=== PATIENT | female | born 1970 | race Caucasian/White ===

== ENCOUNTER 2018-08-20 21:02 | Emergency (ER) | payer MEDICAID ==
[~2018-08-20] VITALS: Ht 170.2 cm; Wt 99.7 kg
[2018-08-20 21:08] VITALS: BP 146/77
[2018-08-20] MEDS ORDERED: proCHLORperazine 10 MG/2 ml inj IV ONE (22:00)
[2018-08-20] MEDS ORDERED: normal saline 1000ML IV soln IVB ONE (22:00)
[2018-08-20] MEDS ORDERED: diphenhydrAMINE 50 mg/ml inj IV ONE (22:00)
== END 2018-08-20 23:42 | disposition home or self-care (01) ==
LOC: ER 21:03
DX: G43.909 Migraine, unspecified, not intractable, without status migrainosus (principal); Z88.1 Allergy status to other antibiotic agents; Z98.51 Tubal ligation status
CPT/HCPCS: 96374; 96375; 99283; J0780; J1200; J7030

== ENCOUNTER 2020-02-19 20:26 | Inpatient (IN) | payer MEDICAID, OTHER ==
[~2020-02-19] VITALS: Ht 167.6 cm; Wt 99.5 kg
[2020-02-19] MEDS ORDERED: temazepam 15mg capsule PO PRN (21:00)
[2020-02-19 21:02] LABS: BASOPHILS % (AUTO) 0.6 % (0-1); EOSINOPHILS # (AUTO) 0.2 X10'3 (0-0.9); EOSINOPHILS % (AUTO) 3.6 % (0-6); HEMATOCRIT 43.5 % (35.0-45.0); HEMOGLOBIN 15.5 g/dl (12.0-16.0); LYMPHOCYTES # (AUTO) 2.3 X10'3 (1.1-4.8); LYMPHOCYTES % (AUTO) 39.2 % (21-51); MEAN CORPUSCULAR HEMOGLOBIN 32.1 PG (27.0-31.0); MEAN CORPUSCULAR HGB CONC 35.7 g/dL (33.0-36.5); MEAN CORPUSCULAR VOLUME 89.9 FL (78-98); MEAN PLATELET VOLUME 8.1 FL (7.4-10.4); MONOCYTES # (AUTO) 0.4 X10'3 (0-0.9); MONOCYTES % (AUTO) 7.1 % (2-12); NEUTROPHILS # (AUTO) 2.9 X10'3 (1.8-7.7); NEUTROPHILS % (AUTO) 49.5 % (42-75); PLATELET COUNT 207 X10'3 (140-440); RED BLOOD COUNT 4.83 X10'6 (4.20-5.60); RED CELL DISTRIBUTION WIDTH 13.1 % (11.5-14.5); WHITE BLOOD COUNT 5.8 X10'3 (4.5-11.0)
[2020-02-19 21:13] LABS: ALBUMIN 4.1 G/DL (3.4-5.0); ALKALINE PHOSPHATASE 78 IU/L (46-116); BILIRUBIN,TOTAL 0.4 MG/DL (0.1-1.0); BLOOD UREA NITROGEN 22 MG/DL (7-18); BUN/CREATININE RATIO 23.7 (6.6-38.0); CALCIUM 8.7 MG/DL (8.5-10.1); CREATININE 0.93 MG/DL (0.40-0.90); SODIUM 145 MMOL/L (135-145); TOTAL CARBON DIOXIDE 27.6 MMOL/L (24-32); eGFR 64 ML/MIN
[2020-02-19 21:54] LABS: ALANINE AMINOTRANSFERASE 35 U/L (12-78); ALBUMIN/GLOBULIN RATIO 1.2 (1.1-1.5); ANION GAP 8 (8-16); CHLORIDE 109 MMOL/L (99-107); TOTAL PROTEIN 7.6 G/DL (6.4-8.2)
[2020-02-19] MEDS ORDERED: aspirin 325mg tablet PO ONE (21:55)
[2020-02-19] MEDS ORDERED: heparin 25,000 UNIT/250ml bag 250 ML IV SCH (21:56)
[2020-02-19] MEDS ORDERED: heparin 10,000 units/1 ML INJ IV ONE ×2 (22:00)
[2020-02-19] MEDS ORDERED: heparin 10,000 units/1 ML INJ IV PRN (22:00)
[2020-02-19] MEDS ORDERED: nitroGLYCERIN 0.4mg SUBLingual tab SL PRN ×2 (22:00→23:20)
[2020-02-19 22:16] LABS: ASPARTATE AMINO TRANSFERASE 31 U/L (10-37)
[2020-02-19 22:18] LABS: GLUCOSE 107 MG/DL (70-104); POTASSIUM 4.1 MMOL/L (3.5-5.1)
[2020-02-19] MEDS ORDERED: ondansetron/PF 4mg/2ml inj IV ONE (22:40)
[2020-02-19] MEDS ORDERED: nitroGLYCERIN 1gm ointment UD TP ONE (22:40)
[2020-02-19] MEDS ORDERED: normal saline 1000ml 1,000 ML IV ONE (22:40)
[2020-02-19] MEDS ORDERED: LORazepam 2 mg/ml vial IV ONE (22:50)
[2020-02-19 22:57] LABS: PARTIAL THROMBOPLASTIN TIME 29 SECONDS (22-32)
[2020-02-19] MEDS ORDERED: normal saline 1000ml 1,000 ML IV SCH (23:11)
[2020-02-19] MEDS ORDERED: magnesium 2GM in 50ml NS 50 ML IV PRN (23:15)
[2020-02-19] MEDS ORDERED: acetaminophen 325mg tablet PO PRN ×2 (23:15)
[2020-02-19] MEDS ORDERED: HYDROcodone/acetaminophen 5mg/325mg tablet PO PRN (23:15)
[2020-02-19] MEDS ORDERED: magnesium 4gm in 100ml NS 100 ML IV PRN (23:15)
[2020-02-19] MEDS ORDERED: morphine 2 MG/ML inj. syringe IV PRN (23:15)
[2020-02-19] MEDS ORDERED: potassium CL 10mEq/100ml bag 100 ML IV PRN ×2 (23:15)
[2020-02-19] MEDS ORDERED: magnesium hydroxide 30ml (MOM) UD suspension PO PRN (23:15)
[2020-02-19] MEDS ORDERED: magnesium Cl slow-release 64mg tablet PO PRN (23:15)
[2020-02-19] MEDS ORDERED: ondansetron/PF 4mg/2ml inj IV PRN (23:15)
[2020-02-19] MEDS ORDERED: mag hydrox/Alum hydrox/simeth 30ml oral suspension PO PRN (23:15)
[2020-02-19] MEDS ORDERED: potassium Cl 20 mEq SR tablet PO PRN ×2 (23:15)
[2020-02-19] MEDS ORDERED: aminophylline 250mg/10ml inj. IV PRN (23:20)
[2020-02-19] MEDS ORDERED: metoprolol tartrate 1mg/ml inj IV PRN (23:20)
[2020-02-19] MEDS ORDERED: regadenoson 0.4mg/5ml syringe IV ONE (23:20)
[2020-02-20] VITALS (15 sets, daily range): BP systolic 117–174; BP diastolic 68–106
--- NOTE | 2020-02-20 00:54 | NUR ---
Patient in room ED 6. I have received report from FELIPA VICKERS and had the opportunity to ask questions and assume patient care.
[2020-02-20 01:32] LABS: ALANINE AMINOTRANSFERASE 30 U/L (12-78); ALBUMIN 3.8 G/DL (3.4-5.0); ALBUMIN/GLOBULIN RATIO 1.3 (1.1-1.5); ALKALINE PHOSPHATASE 69 IU/L (46-116); ANION GAP 7 (8-16); ASPARTATE AMINO TRANSFERASE 4 U/L (10-37); BILIRUBIN,TOTAL 0.2 MG/DL (0.1-1.0); BLOOD UREA NITROGEN 21 MG/DL (7-18); BUN/CREATININE RATIO 23.6 (6.6-38.0); CALCIUM 8.8 MG/DL (8.5-10.1); CHLORIDE 110 MMOL/L (99-107); CREATININE 0.89 MG/DL (0.40-0.90); GLUCOSE 125 MG/DL (70-104); POTASSIUM 3.6 MMOL/L (3.5-5.1); SODIUM 144 MMOL/L (135-145); TOTAL CARBON DIOXIDE 27.1 MMOL/L (24-32); TOTAL PROTEIN 6.8 G/DL (6.4-8.2); eGFR 67 ML/MIN
[2020-02-20 01:34] LABS: CHOL/HDL RATIO 6.4 (0.00-4.99); CHOLESTEROL 187 MG/DL (0-200); HDL CHOLESTEROL 29 MG/DL (35-60); LDL CHOLESTEROL 107 MG/DL (50-100); MAGNESIUM 1.8 MG/DL (1.5-2.4); TRIGLYCERIDES 298 MG/DL (20-135)
[2020-02-20 05:48] LABS: BASOPHILS % (AUTO) 0.7 % (0-1); EOSINOPHILS # (AUTO) 0.2 X10'3 (0-0.9); EOSINOPHILS % (AUTO) 3.4 % (0-6); HEMATOCRIT 39.1 % (35.0-45.0); HEMOGLOBIN 13.3 g/dl (12.0-16.0); LYMPHOCYTES # (AUTO) 1.8 X10'3 (1.1-4.8); LYMPHOCYTES % (AUTO) 34.9 % (21-51); MEAN CORPUSCULAR HEMOGLOBIN 30.5 PG (27.0-31.0); MEAN CORPUSCULAR HGB CONC 34.1 g/dL (33.0-36.5); MEAN CORPUSCULAR VOLUME 89.4 FL (78-98); MEAN PLATELET VOLUME 8.1 FL (7.4-10.4); MONOCYTES # (AUTO) 0.4 X10'3 (0-0.9); MONOCYTES % (AUTO) 8.5 % (2-12); NEUTROPHILS # (AUTO) 2.7 X10'3 (1.8-7.7); NEUTROPHILS % (AUTO) 52.5 % (42-75); PLATELET COUNT 149 X10'3 (140-440); RED BLOOD COUNT 4.37 X10'6 (4.20-5.60); WHITE BLOOD COUNT 5.1 X10'3 (4.5-11.0)
[2020-02-20 05:53] LABS: PARTIAL THROMBOPLASTIN TIME 50 SECONDS (22-32)
--- NOTE | 2020-02-20 06:25 | NUR ---
Problems reprioritized. Patient report given, questions answered & plan of care reviewed with SO VICKERS.
--- NOTE | 2020-02-20 06:30 | NUR ---
Patient in room MED 311. I have received report from Crystal VICKERS and had the opportunity to ask questions and assume patient care.
[2020-02-20] MEDS ORDERED: pantoprazole 40mg Tablet.DR PO SCH (07:30)
[2020-02-20] MEDS ORDERED: K and/or MAG REPLACEMENT MC SCH (08:00)
[2020-02-20] MEDS ORDERED: heparin, porcine 5000 units/ml vial SQ SCH (08:00)
[2020-02-20] MEDS ORDERED: VENL75CA61 PO (09:36)
[2020-02-20 12:08] LABS: URINE AMPHETAMINE SCREEN NEGATIVE (Neg); URINE BARBITUATE SCREEN NEGATIVE (Neg); URINE BENZODIAZEPINES SCREEN NEGATIVE (Neg); URINE CANNABINOID SCREEN NEGATIVE (Neg); URINE COCAINE SCREEN NEGATIVE (Neg); URINE METHADONE SCREEN NEGATIVE (Neg); URINE OPIATE SCREEN POSITIVE (Neg); URINE PHENCYCLIDINE SCREEN NEGATIVE (Neg)
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
[2020-02-20] MEDS ORDERED: cloNIDine 0.1 mg tablet PO ONE (13:25)
[2020-02-20] MEDS ORDERED: ASPI-611 PO (13:29)
[2020-02-20] MEDS ORDERED: METO-395 PO (13:29)
[2020-02-20] MEDS ORDERED: CHLO25TA10 PO (13:29)
[2020-02-20] MEDS ORDERED: NITR0.4T51 SL (13:29)
[2020-02-20] MEDS ORDERED: PANT40TA4 PO (13:29)
[2020-02-20] MEDS ORDERED: ATOR20TA66 PO (13:31)
[2020-02-20] MEDS ORDERED: OMEG1CAP PO (13:31)
[2020-02-20] MEDS ORDERED: iohexol 350MG/ML 100ml bottle IV ONE (13:51)
[2020-02-20] MEDS ORDERED: ALBU8.5H8 INH (14:30)
--- NOTE | 2020-02-20 17:25 | NUR ---
Pt tests were found to be negative today. she has remained stable. Discharge orders given. IV discontinued to R hand and L forearm No s/s of complications noted and pt tolerated well. All discharge instructions given to pt and and both stated understanding. All belongings accounted for. Pt walked with nurse and to private vehicle.
== END 2020-02-20 17:25 | disposition home or self-care (01) | DRG 282 ==
LOC: ER 20:26 → ED HOLD 23:11 → MED 3N 02-20 01:41
PROVIDERS: ADMIT Internal Medicine; ATTEND Family Medicine
PROC: 4A02XM4 Measurement of Cardiac Total Activity, External Approach (ICD-10-PCS; principal; 2020-02-20)
PROC: 3E033HZ Introduction of Radioactive Substance into Peripheral Vein, Percutaneous Approach (ICD-10-PCS; 2020-02-20)
DX: I21.A1 Myocardial infarction type 2 (principal); J44.9 Chronic obstructive pulmonary disease, unspecified; Z79.899 Other long term (current) drug therapy; I16.0 Hypertensive urgency; I10 Essential (primary) hypertension; F17.210 Nicotine dependence, cigarettes, uncomplicated; Z98.51 Tubal ligation status
CPT/HCPCS: 36415; 71045; 71275; 76937; 78452; 80053; 80061; 80305; 83735; 84484; 85025; 85610; 85730; 87081; 93005; 93017; 93306; 97116; 97161; 97530; 99285; A9500; G0378; J0280; J1644; J2060; J2405; J2785; J7030; Q9967

== ENCOUNTER 2020-02-25 09:52 | Emergency (ER) | payer OTHER ==
[~2020-02-25] VITALS: Ht 170.2 cm; Wt 100.4 kg
[~2020-02-25 09:52] MED LIST: ALBU8.5H8 INH; ASPI-611 PO; ATOR20TA66 PO; CHLO25TA10 PO; METO-395 PO; NITR0.4T51 SL; OMEG1CAP PO; PANT40TA4 PO
[2020-02-25 10:02] VITALS: BP 138/85
[2020-02-25] MEDS ORDERED: aspirin 81mg tab.chew PO ONE ×2 (10:05→10:30)
[2020-02-25] MEDS ORDERED: normal saline 1000ML IV soln IVB ONE (10:05)
[2020-02-25 10:40] LABS: BASOPHILS % (AUTO) 0.5 % (0-1); EOSINOPHILS # (AUTO) 0.3 X10'3 (0-0.9); EOSINOPHILS % (AUTO) 3.3 % (0-6); HEMATOCRIT 47.3 % (35.0-45.0); HEMOGLOBIN 16.3 g/dl (12.0-16.0); LYMPHOCYTES # (AUTO) 1.5 X10'3 (1.1-4.8); LYMPHOCYTES % (AUTO) 19.2 % (21-51); MEAN CORPUSCULAR HEMOGLOBIN 30.4 PG (27.0-31.0); MEAN CORPUSCULAR HGB CONC 34.5 g/dL (33.0-36.5); MEAN CORPUSCULAR VOLUME 88.2 FL (78-98); MEAN PLATELET VOLUME 8.6 FL (7.4-10.4); MONOCYTES # (AUTO) 0.6 X10'3 (0-0.9); MONOCYTES % (AUTO) 7.3 % (2-12); NEUTROPHILS # (AUTO) 5.6 X10'3 (1.8-7.7); NEUTROPHILS % (AUTO) 69.7 % (42-75); PLATELET COUNT 215 X10'3 (140-440); RED BLOOD COUNT 5.36 X10'6 (4.20-5.60); RED CELL DISTRIBUTION WIDTH 12.8 % (11.5-14.5)
[2020-02-25 11:09] LABS: ALANINE AMINOTRANSFERASE 32 U/L (12-78); ALBUMIN 4.2 G/DL (3.4-5.0); ALBUMIN/GLOBULIN RATIO 1.1 (1.1-1.5); ALKALINE PHOSPHATASE 77 IU/L (46-116); ANION GAP 9 (8-16); ASPARTATE AMINO TRANSFERASE 19 U/L (10-37); BILIRUBIN,TOTAL 0.7 MG/DL (0.1-1.0); BLOOD UREA NITROGEN 21 MG/DL (7-18); BUN/CREATININE RATIO 21.6 (6.6-38.0); CALCIUM 9.3 MG/DL (8.5-10.1); CHLORIDE 103 MMOL/L (99-107); CREATININE 0.97 MG/DL (0.40-0.90); GLUCOSE 122 MG/DL (70-104); MAGNESIUM 1.7 MG/DL (1.5-2.4); POTASSIUM 3.7 MMOL/L (3.5-5.1); SODIUM 141 MMOL/L (135-145); TOTAL CARBON DIOXIDE 29.3 MMOL/L (24-32); TOTAL PROTEIN 8.2 G/DL (6.4-8.2); eGFR 61 ML/MIN
--- NOTE | 2020-02-25 12:17 | NUR ---
pt c/o whole body cramping
== END 2020-02-25 12:31 | disposition home or self-care (01) ==
LOC: ER 09:53
DX: M79.18 Myalgia, other site (principal); R07.9 Chest pain, unspecified; Z98.51 Tubal ligation status; Z88.1 Allergy status to other antibiotic agents; Z79.82 Long term (current) use of aspirin; Z79.899 Other long term (current) drug therapy
CPT/HCPCS: 36415; 80053; 83735; 84484; 85025; 93005; 99284; J7030

== ENCOUNTER 2021-04-07 04:01 | Emergency (ER) | payer SELFPAY ==
[~2021-04-07] VITALS: Ht 167.6 cm; Wt 100.0 kg
[~2021-04-07 04:01] MED LIST changes: +ALBU8.5H17 INH; -ALBU8.5H8 INH; -ASPI-611 PO; -OMEG1CAP PO; +OMEG1CAP61 PO; -PANT40TA4 PO; +PANT40TA54 PO
[2021-04-07 05:26] LABS: CLARITY,URINE CLEAR (Clear); COLOR,URINE YELLOW (Yellow); GLUCOSE, URINE NEGATIVE (Neg); KETONES,URINE NEGATIVE (Neg); LEUKOCYTE ESTERASE ,URINE NEGATIVE (Neg); NITRITES, URINE NEGATIVE (Neg); OCCULT BLOOD,URINE TRACE-INTACT (Neg); PROTEIN,URINE NEGATIVE (Neg); URINE HCG NEGATIVE (NEG); UROBILINOGEN,URINE 0.2 E.U/dL (0.2-1.0)
[2021-04-07 05:32] LABS: UA COLLECTION TYPE CLN CATCH MIDSTREAM
[2021-04-07 05:33] LABS: BACTERIA,URINE NONE SEEN /HPF (Neg); RBC,URINE NONE SEEN /HPF (0-2); SQUAMOUS EPITHELIAL CELL,UR FEW /LPF (FEW); WBC,URINE 0-4 /HPF (0-4)
[2021-04-07 06:47] LABS: BASOPHILS % (AUTO) 0.3 % (0-1); EOSINOPHILS % (AUTO) 0.6 % (0-6); HEMATOCRIT 43.2 % (35.0-45.0); LYMPHOCYTES # (AUTO) 0.6 X10'3 (1.1-4.8); LYMPHOCYTES % (AUTO) 7.7 % (21-51); MEAN CORPUSCULAR HEMOGLOBIN 30.5 PG (27.0-31.0); MEAN CORPUSCULAR HGB CONC 34.8 g/dL (33.0-36.5); MEAN CORPUSCULAR VOLUME 87.5 FL (78-98); MONOCYTES # (AUTO) 0.5 X10'3 (0-0.9); MONOCYTES % (AUTO) 6.4 % (2-12); NEUTROPHILS # (AUTO) 6.3 X10'3 (1.8-7.7); PLATELET COUNT 160 X10'3 (140-440); RED BLOOD COUNT 4.93 X10'6 (4.20-5.60); RED CELL DISTRIBUTION WIDTH 12.8 % (11.5-14.5); WHITE BLOOD COUNT 7.4 X10'3 (4.5-11.0)
[2021-04-07 07:08] LABS: ALANINE AMINOTRANSFERASE 30 U/L (12-78); ALBUMIN/GLOBULIN RATIO 1.1 (1.1-1.5); ALKALINE PHOSPHATASE 69 IU/L (46-116); ANION GAP 12 (8-16); ASPARTATE AMINO TRANSFERASE 23 U/L (10-37); BILIRUBIN,TOTAL 0.7 MG/DL (0.1-1.0); BLOOD UREA NITROGEN 19 MG/DL (7-18); BUN/CREATININE RATIO 21.6 (6.6-38.0); CALCIUM 9.1 MG/DL (8.5-10.1); CHLORIDE 105 MMOL/L (99-107); CREATININE 0.88 MG/DL (0.40-0.90); GLUCOSE 116 MG/DL (70-104); LIPASE 133 U/L (73-393); POTASSIUM 3.5 MMOL/L (3.5-5.1); SODIUM 143 MMOL/L (135-145); TOTAL CARBON DIOXIDE 26.4 MMOL/L (24-32); TOTAL PROTEIN 7.6 G/DL (6.4-8.2); eGFR 68 ML/MIN
[2021-04-07 07:28] VITALS: BP 102/77
== END 2021-04-07 07:34 | disposition home or self-care (01) ==
LOC: ER 04:01
DX: R68.83 Chills (without fever) (principal); M54.5 Low back pain; R10.9 Unspecified abdominal pain; Z20.822 Contact with and (suspected) exposure to COVID-19
CPT/HCPCS: 36415; 80053; 81001; 81025; 83690; 85025; 87635; 93005; 99284; C9803

== ENCOUNTER 2021-08-02 15:39 | Emergency (ER) | payer SELFPAY ==
[~2021-08-02] VITALS: Ht 167.6 cm; Wt 102.3 kg
[2021-08-02 16:46] VITALS: BP 127/79
[2021-08-02 17:51] LABS: BASOPHILS % (AUTO) 0.5 % (0-1); EOSINOPHILS # (AUTO) 0.2 X10'3 (0-0.9); EOSINOPHILS % (AUTO) 2.5 % (0-6); HEMATOCRIT 43.2 % (35.0-45.0); HEMOGLOBIN 15.3 g/dl (12.0-16.0); LYMPHOCYTES # (AUTO) 2.2 X10'3 (1.1-4.8); LYMPHOCYTES % (AUTO) 34.9 % (21-51); MEAN CORPUSCULAR HEMOGLOBIN 31.1 PG (27.0-31.0); MEAN CORPUSCULAR HGB CONC 35.3 g/dL (33.0-36.5); MEAN PLATELET VOLUME 8.5 FL (7.4-10.4); MONOCYTES # (AUTO) 0.4 X10'3 (0-0.9); MONOCYTES % (AUTO) 5.5 % (2-12); NEUTROPHILS # (AUTO) 3.6 X10'3 (1.8-7.7); NEUTROPHILS % (AUTO) 56.6 % (42-75); PLATELET COUNT 218 X10'3 (140-440); RED BLOOD COUNT 4.91 X10'6 (4.20-5.60); RED CELL DISTRIBUTION WIDTH 13.2 % (11.5-14.5); WHITE BLOOD COUNT 6.4 X10'3 (4.5-11.0)
[2021-08-02 18:03] LABS: ALANINE AMINOTRANSFERASE 32 U/L (12-78); ALBUMIN 4.6 G/DL (3.4-5.0); ALBUMIN/GLOBULIN RATIO 1.2 (1.1-1.5); ALKALINE PHOSPHATASE 83 IU/L (46-116); ANION GAP 8 (8-16); ASPARTATE AMINO TRANSFERASE 16 U/L (10-37); BILIRUBIN,TOTAL 0.3 MG/DL (0.1-1.0); BLOOD UREA NITROGEN 20 MG/DL (7-18); BUN/CREATININE RATIO 21.3 (6.6-38.0); CALCIUM 9.6 MG/DL (8.5-10.1); CHLORIDE 105 MMOL/L (99-107); CREATININE 0.94 MG/DL (0.40-0.90); GLUCOSE 108 MG/DL (70-104); POTASSIUM 3.3 MMOL/L (3.5-5.1); SODIUM 145 MMOL/L (135-145); TOTAL CARBON DIOXIDE 32.4 MMOL/L (24-32); TOTAL PROTEIN 8.5 G/DL (6.4-8.2); eGFR 63 ML/MIN
== END 2021-08-02 20:45 | disposition home or self-care (01) ==
LOC: ER 15:40
DX: R07.89 Other chest pain (principal); R42 Dizziness and giddiness; E86.0 Dehydration; M25.512 Pain in left shoulder; Z98.51 Tubal ligation status; Z88.1 Allergy status to other antibiotic agents; Z79.899 Other long term (current) drug therapy
CPT/HCPCS: 36415; 71045; 80053; 83880; 84484; 85025; 93005; 99285

== ENCOUNTER 2022-05-14 17:01 | Emergency (ER) | payer OTHER ==
[~2022-05-14] VITALS: Ht 167.6 cm; Wt 104.5 kg
[2022-05-14 17:08] VITALS: BP 149/89
== END 2022-05-14 21:30 | disposition home or self-care (01) ==
LOC: ER 17:01
DX: M79.604 Pain in right leg (principal); I10 Essential (primary) hypertension; F17.200 Nicotine dependence, unspecified, uncomplicated; Z90.710 Acquired absence of both cervix and uterus; Z98.51 Tubal ligation status; Z88.1 Allergy status to other antibiotic agents; Z79.899 Other long term (current) drug therapy
CPT/HCPCS: 93971; 99284